=== PATIENT | female | born 1975 | race Hispanic/Latino ===

== ENCOUNTER 2018-07-21 05:27 | Observation (INO) | payer BC ==
[2018-07-20 14:20] VITALS: BP 131/69
[2018-07-20 14:33] LABS: BASOPHILS % (AUTO) 0.9 % (0.0-5.0); HEMATOCRIT 38.5 % (36-48); LYMPHOCYTES % (AUTO) 19.7 % (21.0-51.0); MEAN CORPUSCULAR HEMOGLOBIN 26.2 pg (27.0-33.0); MEAN CORPUSCULAR HGB CONC 32.4 g/dL (32.0-36.0); MEAN CORPUSCULAR VOLUME 80.7 fL (79-99); MONOCYTES % (AUTO) 5.9 % (3.0-13.0); NEUTROPHILS % (AUTO) 70.5 % (40.0-77.0); PLATELET COUNT (AUTO) 254 K/uL (130-400); RED BLOOD CELL COUNT(AUTO) 4.77 MIL/uL (4.00-5.50); RED CELL DISTRIBUTION WIDTH 16.8 % (11.0-15.5); WHITE BLOOD COUNT (AUTO) 11.2 K/uL (4.8-10.8)
[2018-07-21] VITALS (21 sets, daily range): BP systolic 100–141; BP diastolic 48–86
[~2018-07-21] VITALS: Ht 157.5 cm; Wt 88.9 kg
[~2018-07-21 05:27] MED LIST: ATOR20TA65 PO; LISI-613 PO
[2018-07-21] MEDS: CEFAZOLIN SODIUM 1 GM VIAL IVP SCH ×2 (06:00→07:00)
[2018-07-21] MEDS ORDERED: LACTATED RINGERS 1000ML 1,000 ML IV SCH (06:00)
[2018-07-21] MEDS ORDERED: HYDROMORPHONE 1 MG/1 ML AMP ONE (06:33)
[2018-07-21] MEDS ORDERED: LIDOCAINE HCL-MPF 1% 5ML AMP IJ ONE (06:39)
[2018-07-21] MEDS ORDERED: ONDANSETRON HCL 4 MG/2 ML VIAL ONE ×2 (06:40→08:38)
[2018-07-21] MEDS ORDERED: PROPOFOL 10 MG/ML 20ML VIAL IV ONE (06:40)
[2018-07-21] MEDS ORDERED: FENTANYL CITRATE PF 50 MCG/1 ML 2ML VIAL ONE (06:40)
[2018-07-21] MEDS ORDERED: LIDOCAINE HCL 4% LTA SOL 4 ML VIAL ONE (06:40)
[2018-07-21] MEDS ORDERED: MIDAZOLAM HCL 1 MG/ML 2ML VIAL ONE (06:40)
[2018-07-21] MEDS ORDERED: DEXAMETHASONE SOD PHOSPHATE 10MG/ML 1ML VIAL ONE (06:41)
[2018-07-21] MEDS ORDERED: METOCLOPRAMIDE 10 MG/2 ML VIAL ONE (08:54)
[2018-07-21] MEDS ORDERED: MEPERIDINE-PF 25 MG/ML SYG ONE (08:56)
[2018-07-21] MEDS ORDERED: PROMETHAZINE HCL 25 MG/ML 1ML AMPULE IM ONE (09:03)
[2018-07-21] MEDS ORDERED: OPIUM/BELLADONNA ALKALOIDS 1 EACH SUPP.RECT RC ONE (09:05)
[2018-07-21] MEDS ORDERED: SCOPOLAMINE HYDROBROMIDE 1 EACH ADH..PATCH TD ONE (09:06)
[2018-07-21] MEDS ORDERED: ACETAMINOPHEN-CODEINE 300/30MG TAB PO PRN (10:00)
[2018-07-21] MEDS ORDERED: BISACODYL 10 MG SUPP.RECT RC PRN (10:00)
[2018-07-21] MEDS ORDERED: DOCUSATE SODIUM 100 MG CAP PO PRN (10:00)
[2018-07-21] MEDS ORDERED: SIMETHICONE 80 MG TAB.CHEW PO PRN (10:00)
[2018-07-21] MEDS ORDERED: PROMETHAZINE HCL 25 MG/ML 1ML AMPULE IM PRN (10:00)
[2018-07-21] MEDS ORDERED: IBUPROFEN 600 MG TABLET PO PRN (10:00)
[2018-07-21] MEDS: PROMETHAZINE HCL 25 MG/ML 1ML AMPULE IM PRN ×3 (11:56→21:03)
[2018-07-21] MEDS: MEPERIDINE-PF 75 MG/ML SYG IM PRN ×3 (12:01→21:04)
[2018-07-21] MEDS: DEXTROSE 5 %-0.45 % NACL 1,000 ML IV PRN (16:54)
[2018-07-22 00:58] VITALS: BP 110/56
[2018-07-22] MEDS: DEXTROSE 5 %-0.45 % NACL 1,000 ML IV PRN (01:26)
[2018-07-22] MEDS ORDERED: IBUPROFEN 800 MG TAB PO PRN (01:45)
[2018-07-22] MEDS ORDERED: HYDROCODONE/ACETAMINOPHEN 5/325 MG TAB PO PRN (01:45)
[2018-07-22 04:50] VITALS: BP 119/74
[2018-07-22 05:37] LABS: HEMATOCRIT 31.7 % (36-48); MEAN CORPUSCULAR HEMOGLOBIN 26.5 pg (27.0-33.0); MEAN CORPUSCULAR HGB CONC 32.8 g/dL (32.0-36.0); MEAN CORPUSCULAR VOLUME 80.7 fL (79-99); PLATELET COUNT (AUTO) 219 K/uL (130-400); RED BLOOD CELL COUNT(AUTO) 3.93 MIL/uL (4.00-5.50); RED CELL DISTRIBUTION WIDTH 16.6 % (11.0-15.5); WHITE BLOOD COUNT (AUTO) 15.4 K/uL (4.8-10.8)
[2018-07-22 07:41] VITALS: BP 127/78
[2018-07-22 12:45] VITALS: BP 131/78
[2018-07-22 15:56] VITALS: BP 106/79
== END 2018-07-22 16:20 | disposition home or self-care (01) ==
LOC: DAH 05:27 → WSH 05:28
PROVIDERS: ADMIT Obstetrics & Gynecology; ATTEND Obstetrics & Gynecology
DX: D25.9 Leiomyoma of uterus, unspecified (principal); N81.5 Vaginal enterocele; N87.9 Dysplasia of cervix uteri, unspecified; N92.1 Excessive and frequent menstruation with irregular cycle; N93.0 Postcoital and contact bleeding; Z90.710 Acquired absence of both cervix and uterus
CPT/HCPCS: 36415 ×2; 58262; 85025; 85027; 86850; 86900; 86901; 96372; A4351; A4510; A4600; A4606; A4930; G0378 ×35; J0690; J1100; J1170; J2175 ×4; J2250; J2405 ×2; J2550 ×4; J2704; J2765; J3010; J3490; J7120 ×2; 88305; 88307

== ENCOUNTER → 2019-01-21 | Outpatient (CLI) | payer BC | END | disposition home or self-care (01) | LOC: SHCH 13:09 | PROVIDERS: ATTEND Internal Medicine Cardiovascular Disease | DX: I10 Essential (primary) hypertension (principal); J44.9 Chronic obstructive pulmonary disease, unspecified; E78.5 Hyperlipidemia, unspecified; E78.00 Pure hypercholesterolemia, unspecified | CPT/HCPCS: 93306 ==

== ENCOUNTER → 2019-01-25 | Outpatient (CLI) | payer BC ==
[~2019-01-25] VITALS: Ht 157.5 cm; Wt 89.4 kg
[~2019-01-25] MED LIST changes: +REGADENOSON 0.4 MG/5 ML PF SYG IVP SCH
== END | disposition home or self-care (01) ==
LOC: SHCH 08:00
PROVIDERS: ATTEND Internal Medicine Cardiovascular Disease
DX: I25.89 Other forms of chronic ischemic heart disease (principal); I10 Essential (primary) hypertension; J44.9 Chronic obstructive pulmonary disease, unspecified
CPT/HCPCS: 78452; 93017; 96374; A9500 ×2; J2785